=== PATIENT | female | born 1985 | race Caucasian/White ===

== ENCOUNTER 2017-02-11 22:08 | Inpatient (IN) | payer OTHER ==
[~2017-02-11] VITALS: Ht 162.5 cm; Wt 95.0 kg
[~2017-02-11 22:08] MED LIST: AMOXIL500 MG PO; CIPRO500 MG PO; CLARITIN REDITA10 MG PO; CLARITIN-D 12 H1 TAB PO; CYCLOBENZAPRINE10 MG PO; DAYPRO600 M1 PO; ESTRADIOL1 MG PO; IBU800 MG PO; KETOROLAC10 MG PO; MACROBID100 M1 PO; MOTRIN800 MG PO; Motrin,Rufen800 MG PO; NAPROSYN500 MG PO; PREMARIN0.625 MG PO; ROBAXIN750 MG PO; TRAMADOL HCL50 MG PO; ULTRAM50 MG PO; VICO75300 PO; VICODIN 500 MG-1 TAB PO; ZOFRAN ODT4 MG SL
[2017-02-11 22:16] VITALS: BP 142/82
[2017-02-11 22:54] LABS: BASO # 0.1 10*3/uL (0.0-0.1); BASO % 0.5 % (0.0-1.0); EOS # 0.2 10*3/uL (0.0-0.4); EOS % 1.3 % (1.0-4.0); HEMATOCRIT 40.2 % (37.0-47.0); HEMOGLOBIN 13.8 g/dl (12.0-16.0); LYMPH # 2.6 10*3/uL (1.3-4.4); LYMPH % 18.9 % (27.0-41.0); MEAN CORPUSCULAR HGB 28.2 pg (27.0-31.0); MEAN CORPUSCULAR HGB CONC 34.3 g/dl (33.0-37.0); MEAN PLATELET VOLUME 9.5 fl (9.6-12.3); MONO # 0.7 10*3/uL (0.1-1.0); MONO % 4.8 % (3.0-9.0); NEUT # 10.3 10*3/uL (2.3-7.9); NEUT % 74.2 % (47.0-73.0); PLATELET COUNT AUTOMATED 391 10*3/uL (130-400); RED CELL DISTRI WIDTH 12.6 % (0-14.5); WHITE BLOOD COUNT 13.9 10*3/uL (4.8-10.8)
[2017-02-11 23:03] VITALS: BP 129/86
[2017-02-11 23:07] LABS: ALKALINE PHOSPHATASE 150 U/L (45-117); BILIRUBIN, TOTAL 1.4 mg/dl (0.2-1.0); BUN 10 mg/dl (7-24); CARBON DIOXIDE 25 mmol/L (21-32); CHLORIDE 98 mmol/L (98-107); EST GLOM FILT AFRICAN AMERICAN > 60 ml/min; GLUCOSE 98 mg/dL (65-99); POTASSIUM 3.5 mmol/L (3.5-5.1); SGOT/AST 96 IU/L (3-35); SGPT/ALT 128 U/L (12-78); SODIUM 136 mmol/L (136-145); TOTAL PROTEIN 8.7 gm/dL (6.4-8.2)
[2017-02-11 23:19] VITALS: BP 131/75
[2017-02-12] VITALS: BP 128/82
[2017-02-12] MEDS ORDERED: CLARITIN10 MG PO (00:31)
[2017-02-12] MEDS ORDERED: VITAMIN D50000 UNIT PO (00:33)
[2017-02-12] MEDS ORDERED: CALTRATE 600+D1 EACH PO (00:34)
[2017-02-12] MEDS ORDERED: VITAMIN B-650 M1 PO (00:36)
[2017-02-12] MEDS ORDERED: METOPROLOL SUCC50 M1 PO (00:37)
[2017-02-12] MEDS ORDERED: PHILLIPS' COLO1 EACH PO (00:39)
[2017-02-12] MEDS ORDERED: FLUTICASON0.05 MG/AC NAS (00:41)
[2017-02-12] MEDS ORDERED: SUMATRIPTAN SUC50 M1 PO (00:43)
[2017-02-12 04:00] VITALS: BP 113/66
[2017-02-12 06:41] LABS: BASO % 0.3 % (0.0-1.0); EOS # 0.2 10*3/uL (0.0-0.4); EOS % 1.8 % (1.0-4.0); IG # 0.1 10*3/uL (0.0-0.1); LYMPH # 2.2 10*3/uL (1.3-4.4); LYMPH % 20.5 % (27.0-41.0); MEAN CELL VOLUME 83.6 fl (81.0-99.0); MEAN CORPUSCULAR HGB 27.8 pg (27.0-31.0); MEAN CORPUSCULAR HGB CONC 33.2 g/dl (33.0-37.0); MEAN PLATELET VOLUME 9.5 fl (9.6-12.3); MONO # 0.7 10*3/uL (0.1-1.0); MONO % 6.4 % (3.0-9.0); NEUT # 7.5 10*3/uL (2.3-7.9); NEUT % 70.4 % (47.0-73.0); PLATELET COUNT AUTOMATED 275 10*3/uL (130-400); RED BLOOD COUNT 3.78 10*6/uL (4.10-5.10); RED CELL DISTRI WIDTH 12.9 % (0-14.5); WHITE BLOOD COUNT 10.7 10*3/uL (4.8-10.8)
[2017-02-12 06:43] LABS: HEMATOCRIT 31.6 % (37.0-47.0); HEMOGLOBIN 10.5 g/dl (12.0-16.0)
[2017-02-12 07:02] LABS: PROTHROMBIN TIME 10.5 SECONDS (9.0-12.4)
[2017-02-12 07:04] LABS: BUN 10 mg/dl (7-24); CARBON DIOXIDE 26 mmol/L (21-32); CHLORIDE 105 mmol/L (98-107); CHOLESTEROL 140 mg/dL (<200); EST GLOM FILT AFRICAN AMERICAN > 60 ml/min; GLUCOSE 91 mg/dL (65-99); POTASSIUM 3.3 mmol/L (3.5-5.1); SODIUM 138 mmol/L (136-145); TRIGLYCERIDES 63 mg/dl (<150); VLDL CHOLESTEROL 13 mg/dL (6-40)
[2017-02-12 07:12] LABS: FREE T4 1.33 ng/dl (0.76-1.46); HDL CHOLESTEROL 40 mg/dl (40-60); LDL CHOLESTEROL 87 mg/dL (9-159)
[2017-02-12 07:14] LABS: HEMOGLOBIN A1c 4.6 % (4.8-5.6)
[2017-02-12 08:00] VITALS: BP 114/69
[2017-02-12 08:04] LABS: VITAMIN D, 25-HYDROXY 32.4 ng/mL (30-100)
[2017-02-12 08:05] LABS: FOLIC ACID 6.03 ng/mL (>5.38)
[2017-02-12 12:00] VITALS: BP 131/83
[2017-02-12 16:05] VITALS: BP 108/59
[2017-02-12 20:00] VITALS: BP 114/70
[2017-02-13] VITALS: BP 124/69
[2017-02-13 06:28] LABS: ALBUMIN 3.3 gm/dl (3.1-4.5); POTASSIUM 3.8 mmol/L (3.5-5.1); TOTAL PROTEIN 7.3 gm/dL (6.4-8.2)
[2017-02-13 08:00] VITALS: BP 128/89
[2017-02-13 12:03] VITALS: BP 101/53
[2017-02-13 16:00] VITALS: BP 116/65
[2017-02-13 20:00] VITALS: BP 122/73
[2017-02-14] VITALS: BP 121/71
[2017-02-14 06:13] LABS: BASO % 0.3 % (0.0-1.0); EOS # 0.2 10*3/uL (0.0-0.4); HEMATOCRIT 26.6 % (37.0-47.0); HEMOGLOBIN 8.8 g/dl (12.0-16.0); LYMPH # 1.4 10*3/uL (1.3-4.4); LYMPH % 14.7 % (27.0-41.0); MEAN CORPUSCULAR HGB 28.1 pg (27.0-31.0); MEAN CORPUSCULAR HGB CONC 33.1 g/dl (33.0-37.0); MEAN PLATELET VOLUME 9.7 fl (9.6-12.3); MONO # 0.7 10*3/uL (0.1-1.0); MONO % 7.2 % (3.0-9.0); NEUT # 7.2 10*3/uL (2.3-7.9); NEUT % 75.5 % (47.0-73.0); PLATELET COUNT AUTOMATED 248 10*3/uL (130-400); RED BLOOD COUNT 3.13 10*6/uL (4.10-5.10); WHITE BLOOD COUNT 9.6 10*3/uL (4.8-10.8)
[2017-02-14 06:45] LABS: POTASSIUM 3.7 mmol/L (3.5-5.1)
[2017-02-14 08:00] VITALS: BP 132/77
[2017-02-14 08:11] LABS: HEPATITIS C VIRUS ANTIBODY 0.1 s/co (0.0-0.9)
[2017-02-14] MEDS ORDERED: KEFLEX500 M1 PO (10:37)
[2017-02-14] MEDS ORDERED: DOXYCYCLINE100 MG PO (10:37)
[2017-02-14] MEDS ORDERED: B-12500 MC1 PO (10:39)
[2017-02-14 12:00] VITALS: BP 134/74
== END 2017-02-14 12:55 | disposition home or self-care (01) | DRG 871 ==
LOC: ED 22:08 → 4E 23:02 → EDHOLD 23:02 → 4E 23:12
PROVIDERS: Family Medicine; Internal Medicine; Nurse Practitioner Family
DX: A41.9 Sepsis, unspecified organism (principal); E43 Unspecified severe protein-calorie malnutrition; N17.0 Acute kidney failure with tubular necrosis; N61.1 Abscess of the breast and nipple; K57.90 Diverticulosis of intestine, part unspecified, without perforation or abscess without bleeding; K58.8 Other irritable bowel syndrome; E66.9 Obesity, unspecified; K76.0 Fatty (change of) liver, not elsewhere classified; F31.9 Bipolar disorder, unspecified; F43.10 Post-traumatic stress disorder, unspecified; M79.7 Fibromyalgia; G62.9 Polyneuropathy, unspecified; Z88.1 Allergy status to other antibiotic agents; Z88.2 Allergy status to sulfonamides; Z88.8 Allergy status to other drugs, medicaments and biological substances; Z68.37 Body mass index [BMI] 37.0-37.9, adult; Z90.710 Acquired absence of both cervix and uterus; Z90.49 Acquired absence of other specified parts of digestive tract; Z79.899 Other long term (current) drug therapy; Z87.440 Personal history of urinary (tract) infections

== ENCOUNTER 2017-06-20 07:47 | Emergency (ER) | payer OTHER ==
[~2017-06-20] VITALS: Ht 162.5 cm; Wt 97.5 kg
[~2017-06-20 07:47] MED LIST changes: +B-12500 MC1 PO; +CALTRATE 600+D1 EACH PO; +CLARITIN10 MG PO; +DOXYCYCLINE100 MG PO; +FLUTICASON0.05 MG/AC NAS; +KEFLEX500 M1 PO; +METOPROLOL SUCC50 M1 PO; +PHILLIPS' COLO1 EACH PO; +SUMATRIPTAN SUC50 M1 PO; +VITAMIN B-650 M1 PO; +VITAMIN D50000 UNIT PO
[2017-06-20] MEDS ORDERED: ZITHROMAX250 MG PO (09:05)
[2017-06-20] MEDS ORDERED: PREDNISONE50 MG PO (09:05)
== END 2017-06-20 09:12 | disposition home or self-care (01) ==
LOC: ED 07:47
DX: J20.9 Acute bronchitis, unspecified (principal); M79.7 Fibromyalgia; F32.9 Major depressive disorder, single episode, unspecified; N17.0 Acute kidney failure with tubular necrosis; F41.9 Anxiety disorder, unspecified; Z88.2 Allergy status to sulfonamides; Z88.1 Allergy status to other antibiotic agents; Z88.8 Allergy status to other drugs, medicaments and biological substances; Z79.899 Other long term (current) drug therapy; Z68.39 Body mass index [BMI] 39.0-39.9, adult; Z90.710 Acquired absence of both cervix and uterus; Z90.49 Acquired absence of other specified parts of digestive tract

== ENCOUNTER 2017-09-16 11:28 | Emergency (ER) | payer OTHER ==
[~2017-09-16] VITALS: Ht 162.5 cm; Wt 102.5 kg
[~2017-09-16 11:28] MED LIST changes: +PREDNISONE50 MG PO; +ZITHROMAX250 MG PO
[2017-09-16] MEDS ORDERED: DOXYCYCLINE100 M3 PO (12:16)
== END 2017-09-16 12:24 | disposition home or self-care (01) ==
LOC: ED 11:28
DX: L03.116 Cellulitis of left lower limb (principal); L02.416 Cutaneous abscess of left lower limb; Z88.8 Allergy status to other drugs, medicaments and biological substances; Z88.2 Allergy status to sulfonamides; Z88.1 Allergy status to other antibiotic agents; Z79.899 Other long term (current) drug therapy; Z90.710 Acquired absence of both cervix and uterus; Z90.49 Acquired absence of other specified parts of digestive tract; Z90.89 Acquired absence of other organs

== ENCOUNTER 2017-12-06 09:26 | Emergency (ER) | payer OTHER ==
[~2017-12-06] VITALS: Ht 162.5 cm; Wt 99.8 kg
[~2017-12-06 09:26] MED LIST changes: +DOXYCYCLINE100 M3 PO
[2017-12-06] MEDS ORDERED: CORTISPORIN SUS10 ML OT (09:48)
== END 2017-12-06 10:18 | disposition home or self-care (01) ==
LOC: ED 09:26
DX: H60.92 Unspecified otitis externa, left ear (principal); Z90.710 Acquired absence of both cervix and uterus; Z90.49 Acquired absence of other specified parts of digestive tract; Z88.2 Allergy status to sulfonamides; Z88.1 Allergy status to other antibiotic agents

== ENCOUNTER 2018-01-10 18:54 | Emergency (ER) | payer OTHER ==
[~2018-01-10] VITALS: Ht 162.5 cm; Wt 97.5 kg
[~2018-01-10 18:54] MED LIST changes: +CORTISPORIN SUS10 ML OT
[2018-01-10] MEDS ORDERED: ULTRAM50 MG PO (22:24)
== END 2018-01-10 22:35 | disposition home or self-care (01) ==
LOC: ED 18:54
DX: S46.812A Strain of other muscles, fascia and tendons at shoulder and upper arm level, left arm, initial encounter (principal); M79.632 Pain in left forearm; Z90.710 Acquired absence of both cervix and uterus; Z90.49 Acquired absence of other specified parts of digestive tract; Z98.890 Other specified postprocedural states; Z79.899 Other long term (current) drug therapy; Z88.8 Allergy status to other drugs, medicaments and biological substances; Z88.2 Allergy status to sulfonamides; Z88.1 Allergy status to other antibiotic agents; W19.XXXA Unspecified fall, initial encounter; Y93.89 Activity, other specified; Y92.89 Other specified places as the place of occurrence of the external cause; Y99.9 Unspecified external cause status

== ENCOUNTER 2018-02-06 01:13 | Emergency (ER) | payer OTHER ==
[~2018-02-06] VITALS: Ht 162.5 cm; Wt 97.5 kg
[2018-02-06] MEDS ORDERED: DOXYCYCLINE100 M3 PO (01:54)
== END 2018-02-06 02:07 | disposition home or self-care (01) ==
LOC: ED 01:13
DX: L02.211 Cutaneous abscess of abdominal wall (principal); M79.7 Fibromyalgia; G62.9 Polyneuropathy, unspecified; E66.9 Obesity, unspecified; Z68.39 Body mass index [BMI] 39.0-39.9, adult; Z90.710 Acquired absence of both cervix and uterus; Z90.89 Acquired absence of other organs; Z79.899 Other long term (current) drug therapy; Z88.1 Allergy status to other antibiotic agents; Z88.8 Allergy status to other drugs, medicaments and biological substances

== ENCOUNTER 2018-04-28 16:38 | Emergency (ER) | payer OTHER ==
[~2018-04-28] VITALS: Ht 162.5 cm; Wt 98.0 kg
[2018-04-28] MEDS ORDERED: CYCLOBENZAPRINE5 M3 PO (18:42)
[2018-04-28] MEDS ORDERED: DELTASONE20 M1 PO (18:42)
== END 2018-04-28 19:25 | disposition home or self-care (01) ==
LOC: ED 16:38
DX: S16.1XXA Strain of muscle, fascia and tendon at neck level, initial encounter (principal); Z90.710 Acquired absence of both cervix and uterus; Z90.89 Acquired absence of other organs; Z79.899 Other long term (current) drug therapy; Z88.1 Allergy status to other antibiotic agents; Z88.8 Allergy status to other drugs, medicaments and biological substances; X58.XXXA Exposure to other specified factors, initial encounter; Y93.89 Activity, other specified; Y92.89 Other specified places as the place of occurrence of the external cause; Y99.8 Other external cause status

== ENCOUNTER 2018-08-17 18:05 | Emergency (ER) | payer OTHER ==
[~2018-08-17] VITALS: Ht 162.5 cm; Wt 102.1 kg
--- NOTE | ~2018-08-17 | EKG ---
[place], [place] ELECTROCARDIOGRAM REPORT NAME: BLESSING RUBIO UNIT #: [id number] ROOM: DOCTOR: EPIPHANY DRAFT REPORT BIRTHDATE: [birth year] [facility] Test Date: 2018-08-17 Test Time: 18:56:02 Pat Name: BLESSING RUBIO Department: ER Room: Gender: F Chef'S Assistant: EKG.MN : 1985 Requested By: KATHY JOHNSON Order Number: [id number] Reading MD: Markie Pat MD Measurements Intervals [place] Rate: 83 P: 22 PA: 167 QRS: -6 QRSD: 69 T: 24 QT: 363 QTc: 427 Interpretive Statements Sinus rhythm Electronically Signed On 08-18-2018 15:22:10 PST by Markie Pat MD CM:EKGRPT:ELECTROCARDIOGRAM REPORT [id number] KATHY JOHNSON EPIPHANY DRAFT REPORT KATHY JOHNSON
[~2018-08-17 18:05] MED LIST changes: +CYCLOBENZAPRINE5 M3 PO; +DELTASONE20 M1 PO
[2018-08-17 18:56] LABS: BASO # 0.1 10*3/uL (0.0-0.1); BASO % 0.6 % (0.0-1.0); EOS # 0.2 10*3/uL (0.0-0.4); EOS % 2.6 % (1.0-4.0); HEMATOCRIT 38.9 % (37.0-47.0); HEMOGLOBIN 13.2 g/dl (12.0-16.0); LYMPH # 2.3 10*3/uL (1.3-4.4); LYMPH % 28.4 % (27.0-41.0); MEAN CELL VOLUME 83.7 fl (81.0-99.0); MEAN CORPUSCULAR HGB 28.4 pg (27.0-31.0); MEAN CORPUSCULAR HGB CONC 33.9 g/dl (33.0-37.0); MEAN PLATELET VOLUME 9.2 fl (9.6-12.3); MONO # 0.4 10*3/uL (0.1-1.0); MONO % 4.9 % (3.0-9.0); NEUT % 63.2 % (47.0-73.0); PLATELET COUNT AUTOMATED 326 10*3/uL (130-400); RED BLOOD COUNT 4.65 10*6/uL (4.10-5.10)
[2018-08-17 19:17] LABS: ALBUMIN 3.7 gm/dl (3.1-4.5); ALKALINE PHOSPHATASE 117 U/L (45-117); BUN 11 mg/dl (7-24); CHLORIDE 105 mmol/L (98-107); CREATININE 0.74 mg/dL (0.55-1.02); LIPASE 119 U/L (73-393); POTASSIUM 3.9 mmol/L (3.5-5.1); SGOT/AST 24 IU/L (3-35); SGPT/ALT 43 U/L (12-78); SODIUM 140 mmol/L (136-145); TOTAL PROTEIN 7.8 gm/dL (6.4-8.2)
[2018-08-17 19:19] LABS: TROPONIN I < 0.015 ng/ml (<0.045)
[2018-08-17] MEDS ORDERED: Carafate1 GM PO (20:21)
[2018-10-03] MEDS ORDERED: ROBITUSSIN DM 105 ML PO (17:30)
== END 2018-08-17 20:27 | disposition home or self-care (01) ==
LOC: ED 18:05
PROVIDERS: Nurse Practitioner Family
DX: K29.70 Gastritis, unspecified, without bleeding (principal); F41.9 Anxiety disorder, unspecified; E66.9 Obesity, unspecified; G62.9 Polyneuropathy, unspecified; Z79.899 Other long term (current) drug therapy; Z88.1 Allergy status to other antibiotic agents; Z88.2 Allergy status to sulfonamides

== ENCOUNTER 2018-10-15 18:41 | Emergency (ER) | payer OTHER ==
[~2018-10-15] VITALS: Ht 162.5 cm; Wt 102.1 kg
[~2018-10-15 18:41] MED LIST changes: +Carafate1 GM PO; +ROBITUSSIN DM 105 ML PO
== END 2018-10-15 20:03 | disposition home or self-care (01) ==
LOC: ED 18:41
DX: S90.32XA Contusion of left foot, initial encounter (principal); E66.9 Obesity, unspecified; Z88.8 Allergy status to other drugs, medicaments and biological substances; Z88.1 Allergy status to other antibiotic agents; Z88.2 Allergy status to sulfonamides; Z79.899 Other long term (current) drug therapy; Z68.39 Body mass index [BMI] 39.0-39.9, adult; W20.8XXA Other cause of strike by thrown, projected or falling object, initial encounter; Y93.89 Activity, other specified; Y92.89 Other specified places as the place of occurrence of the external cause; Y99.8 Other external cause status

== ENCOUNTER 2018-10-30 10:19 | Emergency (ER) | payer OTHER ==
[~2018-10-30] VITALS: Ht 162.5 cm; Wt 98.4 kg
[2018-10-30 10:44] LABS: BILIRUBIN NEGATIVE (NEGATIVE); BLOOD 3+ (NEGATIVE); CLARITY CLOUDY (CLEAR); COLOR YELLOW (YELLOW); GLUCOSE NEGATIVE (NEGATIVE); KETONE NEGATIVE (NEGATIVE); LEUKO ESTERASE 1+ (NEGATIVE); NITRITE POSITIVE (NEGATIVE); PH 7.5 (5.0-9.0)
[2018-10-30 10:56] LABS: WBC TNTC wbc/hpf (0-5)
[2018-10-30 10:57] LABS: BACTERIA 2+; RBC TNTC rbc/hpf (0-2)
[2018-10-30] MEDS ORDERED: CEFUROXIME AXE500 MG PO (12:03)
[2018-10-30] MEDS ORDERED: PYRIDIUM200 M1 PO (12:03)
== END 2018-10-30 12:22 | disposition home or self-care (01) ==
LOC: ED 10:19
PROVIDERS: Nurse Practitioner Family
DX: N39.0 Urinary tract infection, site not specified (principal); Z88.8 Allergy status to other drugs, medicaments and biological substances; Z88.1 Allergy status to other antibiotic agents; Z88.2 Allergy status to sulfonamides; Z79.899 Other long term (current) drug therapy; Z90.710 Acquired absence of both cervix and uterus

== ENCOUNTER 2019-01-04 10:52 | Emergency (ER) | payer OTHER ==
[~2019-01-04] VITALS: Ht 162.5 cm; Wt 97.5 kg
[~2019-01-04 10:52] MED LIST changes: +CEFUROXIME AXE500 MG PO; +PYRIDIUM200 M1 PO
[2019-01-04 11:16] LABS: BASO # 0.1 10*3/uL (0.0-0.1); BASO % 0.6 % (0.0-1.0); EOS # 0.2 10*3/uL (0.0-0.4); EOS % 2.8 % (1.0-4.0); HEMATOCRIT 40.2 % (37.0-47.0); HEMOGLOBIN 13.1 g/dl (12.0-16.0); LYMPH # 2.8 10*3/uL (1.3-4.4); LYMPH % 31.5 % (27.0-41.0); MEAN CELL VOLUME 85.2 fl (81.0-99.0); MEAN CORPUSCULAR HGB 27.8 pg (27.0-31.0); MEAN CORPUSCULAR HGB CONC 32.6 g/dl (33.0-37.0); MEAN PLATELET VOLUME 9.1 fl (9.6-12.3); MONO # 0.4 10*3/uL (0.1-1.0); NEUT # 5.2 10*3/uL (2.3-7.9); NEUT % 59.9 % (47.0-73.0); PLATELET COUNT AUTOMATED 332 10*3/uL (130-400); RED BLOOD COUNT 4.72 10*6/uL (4.10-5.10); WHITE BLOOD COUNT 8.7 10*3/uL (4.8-10.8)
[2019-01-04 11:20] LABS: BILIRUBIN NEGATIVE (NEGATIVE); BLOOD NEGATIVE (NEGATIVE); CLARITY CLEAR (CLEAR); COLOR YELLOW (YELLOW); GLUCOSE NEGATIVE (NEGATIVE); KETONE NEGATIVE (NEGATIVE); LEUKO ESTERASE NEGATIVE (NEGATIVE); NITRITE NEGATIVE (NEGATIVE); PH 5.5 (5.0-9.0); SPECIFIC GRAVITY 1.025 (1.005-1.030); UROBILINOGEN 0.2 E.U./dl (0.2-1.0)
[2019-01-04 11:27] LABS: MUCOUS TRACE
[2019-01-04 11:31] LABS: ALBUMIN 3.9 gm/dl (3.1-4.5); ALKALINE PHOSPHATASE 133 U/L (45-117); BUN 10 mg/dl (7-24); CHLORIDE 104 mmol/L (98-107); CREATININE 0.84 mg/dL (0.55-1.02); LIPASE 125 U/L (73-393); POTASSIUM 3.9 mmol/L (3.5-5.1); SGOT/AST 23 IU/L (3-35); SGPT/ALT 54 U/L (12-78); SODIUM 139 mmol/L (136-145); TOTAL PROTEIN 8.1 gm/dL (6.4-8.2)
== END 2019-01-04 14:36 | disposition home or self-care (01) ==
LOC: ED 10:52
PROVIDERS: Emergency Medicine
DX: R10.11 Right upper quadrant pain (principal); R11.0 Nausea; R19.7 Diarrhea, unspecified; G62.9 Polyneuropathy, unspecified; E66.9 Obesity, unspecified; Z90.710 Acquired absence of both cervix and uterus; Z88.8 Allergy status to other drugs, medicaments and biological substances; Z88.1 Allergy status to other antibiotic agents; Z88.2 Allergy status to sulfonamides; Z79.899 Other long term (current) drug therapy; Z68.35 Body mass index [BMI] 35.0-35.9, adult; Z90.49 Acquired absence of other specified parts of digestive tract

== ENCOUNTER 2019-02-23 12:47 | Emergency (ER) | payer OTHER ==
[~2019-02-23] VITALS: Ht 162.5 cm; Wt 97.5 kg
[2019-02-23] MEDS ORDERED: PREDNISONE20 M1 PO (14:51)
== END 2019-02-23 14:56 | disposition home or self-care (01) ==
LOC: ED 12:47
DX: L50.9 Urticaria, unspecified (principal); Z79.899 Other long term (current) drug therapy; Z88.8 Allergy status to other drugs, medicaments and biological substances; Z88.1 Allergy status to other antibiotic agents; Z88.2 Allergy status to sulfonamides

== ENCOUNTER 2019-03-24 17:13 | Emergency (ER) | payer OTHER ==
[~2019-03-24] VITALS: Ht 162.5 cm; Wt 97.5 kg
[~2019-03-24 17:13] MED LIST changes: +PREDNISONE20 M1 PO
[2019-03-24] MEDS ORDERED: MEDROL DOSEPAK4 MG PO (18:26)
[2019-03-24] MEDS ORDERED: ROBAXIN500 M1 PO (18:26)
== END 2019-03-24 19:02 | disposition home or self-care (01) ==
LOC: ED 17:13
DX: M54.41 Lumbago with sciatica, right side (principal); Z88.8 Allergy status to other drugs, medicaments and biological substances; Z88.1 Allergy status to other antibiotic agents; Z88.2 Allergy status to sulfonamides; Z79.899 Other long term (current) drug therapy

== ENCOUNTER 2019-06-20 10:37 | Emergency (ER) | payer OTHER ==
[~2019-06-20] VITALS: Ht 162.5 cm; Wt 98.9 kg
[~2019-06-20 10:37] MED LIST changes: +MEDROL DOSEPAK4 MG PO; +ROBAXIN500 M1 PO
[2019-06-20 11:18] LABS: BASO # 0.1 10*3/uL (0.0-0.1); BASO % 0.8 % (0.0-1.0); EOS # 0.3 10*3/uL (0.0-0.4); EOS % 3.5 % (1.0-4.0); HEMATOCRIT 39.3 % (37.0-47.0); HEMOGLOBIN 12.9 g/dl (12.0-16.0); LYMPH # 2.3 10*3/uL (1.3-4.4); LYMPH % 29.6 % (27.0-41.0); MEAN CELL VOLUME 85.8 fl (81.0-99.0); MEAN CORPUSCULAR HGB 28.2 pg (27.0-31.0); MEAN CORPUSCULAR HGB CONC 32.8 g/dl (33.0-37.0); MEAN PLATELET VOLUME 9.2 fl (9.6-12.3); MONO # 0.3 10*3/uL (0.1-1.0); MONO % 4.4 % (3.0-9.0); NEUT # 4.7 10*3/uL (2.3-7.9); NEUT % 61.3 % (47.0-73.0); PLATELET COUNT AUTOMATED 311 10*3/uL (130-400); RED BLOOD COUNT 4.58 10*6/uL (4.10-5.10); RED CELL DISTRI WIDTH 12.7 % (0-14.5); WHITE BLOOD COUNT 7.7 10*3/uL (4.8-10.8)
[2019-06-20 11:37] LABS: ALBUMIN 3.8 gm/dl (3.1-4.5); ALKALINE PHOSPHATASE 104 U/L (45-117); BUN 9 mg/dl (7-24); CHLORIDE 107 mmol/L (98-107); SGOT/AST 30 IU/L (3-35); SGPT/ALT 44 U/L (12-78); SODIUM 142 mmol/L (136-145); TOTAL PROTEIN 7.6 gm/dL (6.4-8.2)
[2019-06-20] MEDS ORDERED: DOXYCYCLINE100 M3 PO (12:07)
== END 2019-06-20 12:17 | disposition home or self-care (01) ==
LOC: ED 10:37
PROVIDERS: Nurse Practitioner Family
DX: B27.90 Infectious mononucleosis, unspecified without complication (principal); J01.90 Acute sinusitis, unspecified; I10 Essential (primary) hypertension; K21.9 Gastro-esophageal reflux disease without esophagitis; G62.9 Polyneuropathy, unspecified; Z79.899 Other long term (current) drug therapy; Z88.2 Allergy status to sulfonamides; Z88.1 Allergy status to other antibiotic agents; Z88.8 Allergy status to other drugs, medicaments and biological substances

== ENCOUNTER 2019-09-01 08:21 | Emergency (ER) | payer OTHER ==
[~2019-09-01] VITALS: Ht 162.5 cm; Wt 97.5 kg
[2019-09-01 09:33] LABS: BASO # 0.1 10*3/uL (0.0-0.1); BASO % 0.9 % (0.0-1.0); EOS # 0.2 10*3/uL (0.0-0.4); EOS % 2.4 % (1.0-4.0); HEMATOCRIT 37.7 % (37.0-47.0); HEMOGLOBIN 12.5 g/dl (12.0-16.0); LYMPH # 1.3 10*3/uL (1.3-4.4); LYMPH % 18.9 % (27.0-41.0); MEAN CELL VOLUME 85.3 fl (81.0-99.0); MEAN CORPUSCULAR HGB 28.3 pg (27.0-31.0); MEAN CORPUSCULAR HGB CONC 33.2 g/dl (33.0-37.0); MEAN PLATELET VOLUME 9.2 fl (9.6-12.3); MONO # 0.5 10*3/uL (0.1-1.0); NEUT # 4.7 10*3/uL (2.3-7.9); NEUT % 70.3 % (47.0-73.0); PLATELET COUNT AUTOMATED 254 10*3/uL (130-400); RED BLOOD COUNT 4.42 10*6/uL (4.10-5.10); RED CELL DISTRI WIDTH 12.7 % (0-14.5); WHITE BLOOD COUNT 6.6 10*3/uL (4.8-10.8)
[2019-09-01 09:47] LABS: ALBUMIN 3.8 gm/dl (3.1-4.5); ALKALINE PHOSPHATASE 133 U/L (45-117); BUN 8 mg/dl (7-24); CHLORIDE 104 mmol/L (98-107); CREATININE 0.88 mg/dL (0.55-1.02); LIPASE 125 U/L (73-393); SGOT/AST 39 IU/L (3-35); SGPT/ALT 64 U/L (12-78); SODIUM 137 mmol/L (136-145); TOTAL PROTEIN 7.6 gm/dL (6.4-8.2)
[2019-09-01 10:00] LABS: BILIRUBIN NEGATIVE (NEGATIVE); BLOOD NEGATIVE (NEGATIVE); CLARITY SL CLOUDY (CLEAR); COLOR YELLOW (YELLOW); GLUCOSE NEGATIVE (NEGATIVE); KETONE 1+ (NEGATIVE); LEUKO ESTERASE NEGATIVE (NEGATIVE); NITRITE NEGATIVE (NEGATIVE); SPECIFIC GRAVITY 1.025 (1.005-1.030); UROBILINOGEN 0.2 E.U./dl (0.2-1.0)
[2019-09-01 10:13] LABS: BACTERIA TRACE; MUCOUS TRACE
[2019-09-01] MEDS ORDERED: ZITHROMAX250 MG PO (11:45)
[2019-09-01] MEDS ORDERED: PHENERGAN25 M3 PO (11:45)
== END 2019-09-01 12:31 | disposition home or self-care (01) ==
LOC: ED 08:21
PROVIDERS: Emergency Medicine
DX: J20.9 Acute bronchitis, unspecified (principal); R11.2 Nausea with vomiting, unspecified; R19.7 Diarrhea, unspecified; F31.9 Bipolar disorder, unspecified; M79.7 Fibromyalgia; G62.9 Polyneuropathy, unspecified; E66.9 Obesity, unspecified; I10 Essential (primary) hypertension; K21.9 Gastro-esophageal reflux disease without esophagitis; Z88.8 Allergy status to other drugs, medicaments and biological substances; Z88.1 Allergy status to other antibiotic agents; Z88.2 Allergy status to sulfonamides; Z79.899 Other long term (current) drug therapy; Z79.2 Long term (current) use of antibiotics; Z68.35 Body mass index [BMI] 35.0-35.9, adult; Z90.49 Acquired absence of other specified parts of digestive tract

== ENCOUNTER 2019-09-29 14:26 | Emergency (ER) | payer OTHER ==
[~2019-09-29] VITALS: Ht 162.5 cm; Wt 102.1 kg
[~2019-09-29 14:26] MED LIST changes: +PHENERGAN25 M3 PO
[2019-09-29 15:51] LABS: BASO # 0.1 10*3/uL (0.0-0.1); BASO % 0.6 % (0.0-1.0); EOS # 0.2 10*3/uL (0.0-0.4); EOS % 2.6 % (1.0-4.0); HEMATOCRIT 40.4 % (37.0-47.0); HEMOGLOBIN 13.1 g/dl (12.0-16.0); LYMPH # 2.2 10*3/uL (1.3-4.4); LYMPH % 27.4 % (27.0-41.0); MEAN CELL VOLUME 85.6 fl (81.0-99.0); MEAN CORPUSCULAR HGB 27.8 pg (27.0-31.0); MEAN CORPUSCULAR HGB CONC 32.4 g/dl (33.0-37.0); MEAN PLATELET VOLUME 9.4 fl (9.6-12.3); MONO # 0.4 10*3/uL (0.1-1.0); MONO % 5.3 % (3.0-9.0); NEUT # 5.2 10*3/uL (2.3-7.9); NEUT % 63.7 % (47.0-73.0); PLATELET COUNT AUTOMATED 326 10*3/uL (130-400); RED BLOOD COUNT 4.72 10*6/uL (4.10-5.10); RED CELL DISTRI WIDTH 12.9 % (0-14.5); WHITE BLOOD COUNT 8.2 10*3/uL (4.8-10.8)
[2019-09-29 16:01] LABS: BILIRUBIN NEGATIVE (NEGATIVE); CLARITY CLEAR (CLEAR); COLOR YELLOW (YELLOW); GLUCOSE NEGATIVE (NEGATIVE); KETONE NEGATIVE (NEGATIVE)
[2019-09-29 16:02] LABS: BLOOD NEGATIVE (NEGATIVE); LEUKO ESTERASE NEGATIVE (NEGATIVE); NITRITE NEGATIVE (NEGATIVE); UROBILINOGEN 0.2 E.U./dl (0.2-1.0)
[2019-09-29 16:05] LABS: ALBUMIN 3.6 gm/dl (3.1-4.5); ALKALINE PHOSPHATASE 124 U/L (45-117); BUN 9 mg/dl (7-24); CHLORIDE 105 mmol/L (98-107); CREATININE 0.86 mg/dL (0.55-1.02); LIPASE 97 U/L (73-393); SGOT/AST 32 IU/L (3-35); SGPT/ALT 65 U/L (12-78); SODIUM 140 mmol/L (136-145); TOTAL PROTEIN 7.4 gm/dL (6.4-8.2)
== END 2019-09-29 17:30 | disposition home or self-care (01) ==
LOC: ED 14:26
PROVIDERS: Physician Assistant
DX: R10.31 Right lower quadrant pain (principal); Z88.8 Allergy status to other drugs, medicaments and biological substances; Z79.899 Other long term (current) drug therapy; Z88.2 Allergy status to sulfonamides; Z79.2 Long term (current) use of antibiotics; Z90.710 Acquired absence of both cervix and uterus

== ENCOUNTER 2019-10-10 22:34 | Emergency (ER) | payer OTHER ==
[~2019-10-10] VITALS: Ht 162.5 cm; Wt 97.5 kg
[2019-10-11] MEDS ORDERED: AUGMENTIN 875875 MG PO (01:45)
== END 2019-10-11 01:54 | disposition home or self-care (01) ==
LOC: ED 22:34
DX: J32.9 Chronic sinusitis, unspecified (principal); J02.9 Acute pharyngitis, unspecified; Z88.8 Allergy status to other drugs, medicaments and biological substances; Z88.1 Allergy status to other antibiotic agents; Z88.2 Allergy status to sulfonamides; Z79.899 Other long term (current) drug therapy

== ENCOUNTER 2019-10-13 12:52 | Emergency (ER) | payer OTHER ==
[~2019-10-13] VITALS: Ht 162.5 cm; Wt 97.5 kg
[~2019-10-13 12:52] MED LIST changes: +AUGMENTIN 875875 MG PO
== END 2019-10-13 13:21 | disposition home or self-care (01) ==
LOC: ED 12:52
DX: B08.4 Enteroviral vesicular stomatitis with exanthem (principal); I10 Essential (primary) hypertension; K21.9 Gastro-esophageal reflux disease without esophagitis; G62.9 Polyneuropathy, unspecified; Z88.8 Allergy status to other drugs, medicaments and biological substances; Z88.2 Allergy status to sulfonamides; Z88.1 Allergy status to other antibiotic agents; Z79.2 Long term (current) use of antibiotics; Z79.899 Other long term (current) drug therapy; Z90.710 Acquired absence of both cervix and uterus; Z90.49 Acquired absence of other specified parts of digestive tract

== ENCOUNTER 2019-12-05 19:16 | Emergency (ER) | payer OTHER ==
[~2019-12-05] VITALS: Ht 162.5 cm; Wt 99.8 kg
[2019-12-05 19:47] LABS: BASO # 0.1 10*3/uL (0.0-0.1); BASO % 0.6 % (0.0-1.0); EOS # 0.3 10*3/uL (0.0-0.4); EOS % 2.6 % (1.0-4.0); HEMATOCRIT 39.3 % (37.0-47.0); LYMPH # 2.6 10*3/uL (1.3-4.4); LYMPH % 25.2 % (27.0-41.0); MEAN CELL VOLUME 83.8 fl (81.0-99.0); MEAN CORPUSCULAR HGB 27.9 pg (27.0-31.0); MEAN CORPUSCULAR HGB CONC 33.3 g/dl (33.0-37.0); MEAN PLATELET VOLUME 9.4 fl (9.6-12.3); MONO # 0.5 10*3/uL (0.1-1.0); MONO % 4.8 % (3.0-9.0); NEUT # 6.8 10*3/uL (2.3-7.9); NEUT % 66.4 % (47.0-73.0); PLATELET COUNT AUTOMATED 317 10*3/uL (130-400); RED BLOOD COUNT 4.69 10*6/uL (4.10-5.10); WHITE BLOOD COUNT 10.3 10*3/uL (4.8-10.8)
[2019-12-05 19:57] LABS: ACT PARTIAL THROMBO TIME 25.8 SECONDS (20.0-32.1); INTERNATIONAL NORM RATIO 0.9 (2.0-3.5)
[2019-12-05 20:04] LABS: ALBUMIN 3.9 gm/dl (3.1-4.5); ALKALINE PHOSPHATASE 106 U/L (45-117); BUN 11 mg/dl (7-24); CHLORIDE 107 mmol/L (98-107); CREATININE 0.85 mg/dL (0.55-1.02); SGOT/AST 42 IU/L (3-35); SGPT/ALT 69 U/L (12-78); SODIUM 140 mmol/L (136-145); TOTAL PROTEIN 7.7 gm/dL (6.4-8.2); TROPONIN I < 0.015 ng/ml (<0.045)
[2019-12-05] MEDS ORDERED: ATARAX,VISTARIL50 MG PO (21:45)
[2019-12-05] MEDS ORDERED: BUSPAR5 MG PO (21:45)
[2019-12-05] MEDS ORDERED: PEPCID20 MG PO (21:45)
[2019-12-05] MEDS ORDERED: LEXAPRO20 MG PO (21:45)
== END 2019-12-05 22:22 | disposition home or self-care (01) ==
LOC: ED 19:16
PROVIDERS: Emergency Medicine Emergency Medical Services
DX: K21.9 Gastro-esophageal reflux disease without esophagitis (principal); F41.1 Generalized anxiety disorder; F43.0 Acute stress reaction; I10 Essential (primary) hypertension; F31.9 Bipolar disorder, unspecified; Z88.8 Allergy status to other drugs, medicaments and biological substances; Z88.2 Allergy status to sulfonamides; Z79.899 Other long term (current) drug therapy; Z79.2 Long term (current) use of antibiotics

== ENCOUNTER 2020-04-21 20:33 | Emergency (ER) | payer OTHER ==
[~2020-04-21] VITALS: Ht 162.5 cm; Wt 102.1 kg
[~2020-04-21 20:33] MED LIST changes: +ATARAX,VISTARIL50 MG PO; +BUSPAR5 MG PO; +LEXAPRO20 MG PO; +PEPCID20 MG PO
[2020-04-21 21:37] LABS: BASO # 0.1 10*3/uL (0.0-0.1); BASO % 0.5 % (0.0-1.0); EOS # 0.4 10*3/uL (0.0-0.4); EOS % 3.6 % (1.0-4.0); HEMATOCRIT 38.9 % (37.0-47.0); LYMPH # 3.1 10*3/uL (1.3-4.4); LYMPH % 30.3 % (27.0-41.0); MEAN CELL VOLUME 83.8 fl (81.0-99.0); MEAN CORPUSCULAR HGB 27.2 pg (27.0-31.0); MEAN CORPUSCULAR HGB CONC 32.4 g/dl (33.0-37.0); MEAN PLATELET VOLUME 9.2 fl (9.6-12.3); MONO # 0.5 10*3/uL (0.1-1.0); MONO % 4.8 % (3.0-9.0); NEUT # 6.1 10*3/uL (2.3-7.9); PLATELET COUNT AUTOMATED 323 10*3/uL (130-400); RED BLOOD COUNT 4.64 10*6/uL (4.10-5.10); RED CELL DISTRI WIDTH 12.7 % (0-14.5); WHITE BLOOD COUNT 10.2 10*3/uL (4.8-10.8)
[2020-04-21 21:54] LABS: ALBUMIN 3.9 gm/dl (3.1-4.5); ALKALINE PHOSPHATASE 112 U/L (45-117); BUN 8 mg/dl (7-24); CHLORIDE 108 mmol/L (98-107); CREATININE 0.79 mg/dL (0.55-1.02); POTASSIUM 3.7 mmol/L (3.5-5.1); SGOT/AST 15 IU/L (3-35); SGPT/ALT 39 U/L (12-78); SODIUM 141 mmol/L (136-145); TOTAL PROTEIN 7.7 gm/dL (6.4-8.2)
[2020-04-21 21:55] LABS: TROPONIN I < 0.015 ng/ml (<0.045)
== END 2020-04-22 00:44 | disposition home or self-care (01) ==
LOC: ED 20:33
PROVIDERS: Emergency Medicine
DX: R07.9 Chest pain, unspecified (principal); F41.1 Generalized anxiety disorder; F43.0 Acute stress reaction; F17.200 Nicotine dependence, unspecified, uncomplicated; Z88.8 Allergy status to other drugs, medicaments and biological substances; Z88.2 Allergy status to sulfonamides; Z88.1 Allergy status to other antibiotic agents; Z79.899 Other long term (current) drug therapy

== ENCOUNTER 2025-06-16 17:46 | Emergency (ER) | payer OTHER ==
[~2025-06-16] VITALS: Ht 162.5 cm; Wt 97.5 kg
[2025-06-16 20:21] LABS: BASO # 0.1 10*3/uL (0.0-0.1); BASO % 0.7 % (0.0-1.0); EOS # 0.8 10*3/uL (0.0-0.4); EOS % 8.3 % (1.0-4.0); MEAN CELL VOLUME 86.6 fl (81.0-99.0); MEAN CORPUSCULAR HGB 28.2 pg (27.0-31.0); MEAN PLATELET VOLUME 9.2 fl (9.6-12.3); MONO # 0.5 10*3/uL (0.1-1.0); MONO % 4.5 % (3.0-9.0); NEUT # 6.0 10*3/uL (2.3-7.9); NEUT % 59.1 % (47.0-73.0); NUCLEATED RED BLOOD CELL 0.0 % (0.0-0.0); NUCLEATED RED BLOOD CELL 0.0 10*3/uL (0.0-0.0); PLATELET COUNT AUTOMATED 338 10*3/uL (130-400); RED CELL DISTRI WIDTH 13.1 % (0-14.5)
[2025-06-16 20:41] LABS: BUN 9 mg/dl (9-23)
[2025-06-16] MEDS ORDERED: BENZONATATE 100 MG CAP PO ONE (23:20)
[2025-06-16] MEDS ORDERED: BENZONATATE100 M1 PO (23:27)
== END 2025-06-16 23:33 | disposition home or self-care (01) ==
LOC: ED 17:46
PROVIDERS: Emergency Medicine
DX: J40 Bronchitis, not specified as acute or chronic (principal); Z20.822 Contact with and (suspected) exposure to COVID-19; R42 Dizziness and giddiness; Z88.8 Allergy status to other drugs, medicaments and biological substances; Z88.2 Allergy status to sulfonamides; Z79.899 Other long term (current) drug therapy; Z90.89 Acquired absence of other organs; Z90.710 Acquired absence of both cervix and uterus